=== PATIENT | female | born 1980 | race Caucasian/White ===

== ENCOUNTER 2023-09-25 03:15 | Emergency (ER) | payer OTHER ==
[~2023-09-25] VITALS: Ht 162.6 cm; Wt 72.6 kg
[2023-09-25 03:40] VITALS: TEMP 98.1
[2023-09-25] MEDS ORDERED: ONDANSETRON HCL/PF 4 MG/2 ML VIAL ONE (04:18)
[2023-09-25 04:23] LABS: BASOPHILS # (AUTO) 0.1 K/uL (0.0-0.2); BASOPHILS % (AUTO) 0.8 % (0.0-2.0); EOSINOPHILS # (AUTO) 0.1 K/uL (0.0-0.7); EOSINOPHILS % (AUTO) 0.7 % (0.0-6.0); HEMATOCRIT 31 % (33-45); HEMOGLOBIN 9.8 g/dL (11.5-14.8); LYMPHOCYTES # (AUTO) 1.7 K/uL (0.8-4.8); LYMPHOCYTES % (AUTO) 17.3 % (20.0-44.0); MEAN CORPUSCULAR HEMOGLOBIN 25 PG (26.0-33.0); MEAN CORPUSCULAR HGB CONC 32 g/dl (31.0-36.0); MEAN CORPUSCULAR VOLUME 78 fL (82-100); MONOCYTES # (AUTO) 0.9 K/uL (0.1-1.30); MONOCYTES % (AUTO) 9.1 % (2.0-12.0); NEUTROPHILS # (AUTO) 7.1 K/uL (1.8-8.9); NEUTROPHILS % (AUTO) 72.1 % (43.0-81.0); PLATELET COUNT (AUTO) 288 K/uL (150-450); RED BLOOD CELL COUNT(AUTO) 3.95 MIL/uL (4.0-5.2); RED CELL DISTRIBUTION WIDTH 18.8 % (11.5-15.0); WHITE BLOOD COUNT (AUTO) 9.9 K/uL (4.3-11.0)
[2023-09-25] MEDS: IV NS 0.9% 1,000 ML BAG IV ONE (04:25)
[2023-09-25] MEDS: ONDANSETRON HCL/PF 4 MG/2 ML VIAL IVP ONE (04:25)
[2023-09-25 04:27] LABS: CALCIUM, SERUM 9.1 mg/dL (8.5-10.1); CREATININE 0.6 mg/dL (0.6-1.3); POTASSIUM 3.2 mmol/L (3.5-5.1)
[2023-09-25 04:33] LABS: ALBUMIN 3.7 g/dL (3.4-5.0); BILIRUBIN,TOTAL 0.2 mg/dL (0.2-1.0); TOTAL PROTEIN, SERUM 7.1 g/dL (6.4-8.2)
[2023-09-25] MEDS ORDERED: METOCLOPRAMIDE HCL 10 MG/2 ML VIAL ONE (06:06)
[2023-09-25] MEDS ORDERED: HALOPERIDOL LACTATE INJ 5 MG/ML VIAL ONE (06:06)
[2023-09-25] MEDS: HALOPERIDOL LACTATE INJ 5 MG/ML VIAL IV ONE (06:14)
[2023-09-25] MEDS: METOCLOPRAMIDE HCL 10 MG/2 ML VIAL IV ONE (06:14)
[2023-09-25] MEDS ORDERED: METO-295 PO (06:33)
[2023-09-25] MEDS ORDERED: ONDA4TAB11 PO (06:33)
[2023-09-25 06:54] VITALS: BP 132/75; O2SAT 97
== END 2023-09-25 06:54 | disposition home or self-care (01) ==
LOC: ER 03:17
DX: R11.2 Nausea with vomiting, unspecified (principal); R10.13 Epigastric pain; F17.200 Nicotine dependence, unspecified, uncomplicated; Z88.8 Allergy status to other drugs, medicaments and biological substances
CPT/HCPCS: 99285; 96374; 71045; 96375; 96361; 85025; 80048; 83690; 80076; 36415; J1630; J2765; J2405; J7030; J7040